=== PATIENT | female | born 1955 | race Caucasian/White ===

== ENCOUNTER 2017-03-24 07:23 | Emergency (ER) | payer MEDICARE, OTHER ==
[~2017-03-24 07:23] MED LIST: ACET500T3 PO; BONI150T PO; ESTR1 PO; FLAV100T PO; GABA300C5 PO; HYDR25TA5 PO; LEVO100T5 PO; LISI10TA3 PO; MELO-1 PO; OXYC1TAB63 PO; TIZA4CAP3 PO; [UNRECOGNIZED DRUG - OTHER] TOPICAL; calcium PO
[2017-03-24 07:26] VITALS: BP 121/64; PULSE 71; RESP 12; TEMP 98.4; O2SAT 97
[2017-03-24] MEDS ORDERED: ONDANSETRON HCL 4 MG/2 ML VIAL IV PUSH ONE (08:15)
[2017-03-24] MEDS ORDERED: HYDROmorphone HCL PF 1 MG/ML VIAL IV PUSH ONE (08:15)
[2017-03-24 08:28] LABS: AUTOMATED NEUTROPHIL # 3.5 TH/MM3 (1.8-7.7); BASOPHIL % 0.7 % (0.0-2.0); EOSINOPHIL % 0.5 % (0.0-4.0); HEMATOCRIT 43.3 % (35.0-46.0); HEMO FLAGS DIFF FINAL; LYMPH % 29.3 % (9.0-44.0); LYMPHOCYTE # 1.6 TH/MM3 (1.0-4.8); MEAN CELL VOLUME 91.6 FL (80.0-100.0); MEAN CORPUSCULAR HEMOGLOBIN 31.1 PG (27.0-34.0); MONO % 7.3 % (0.0-8.0); NEUT % 62.2 % (16.0-70.0); PLATELET COUNT 254 TH/MM3 (150-450); RED BLOOD COUNT 4.73 MIL/MM3 (4.00-5.30); RED CELL DISTRIBUTION WIDTH 13.6 % (11.6-17.2); WHITE BLOOD COUNT 5.5 TH/MM3 (4.0-11.0)
[2017-03-24 08:46] LABS: ANION GAP 5 MEQ/L (5-15); AST (GOT) 46 U/L (15-37); BICARBONATE 29.2 MEQ/L (21.0-32.0); BLOOD UREA NITROGEN 14 MG/DL (7-18); CHLORIDE 105 MEQ/L (98-107); GLOMERULAR FILTRATION RATE 62 ML/MIN (>89); POTASSIUM 3.7 MEQ/L (3.5-5.1); SODIUM (NA) 139 MEQ/L (136-145)
[2017-03-24 08:50] LABS: ALKALINE PHOSPHATASE 82 U/L (45-117); ALT (GPT) 38 U/L (10-53); TOTAL BILIRUBIN ADULT 0.8 MG/DL (0.2-1.0)
--- NOTE | 2017-03-24 08:53 | PD ---
HPI Chief Complaint: Dizziness Time Seen by Provider: 07:49 Travel History International Travel<30 days: No Contact w/Intl Traveler<30days: No Traveled to known affect area: No History of Present Illness HPI This is a 62-year-old female who has a history of an ACDF performed in [place] 5 weeks ago who presents to the emergency department with 3 days of severe vertigo. She initially said it was positional and when she stood straight it would not bother her. She feels like the room is spinning. Now is affecting her all of the time and she can't sleep despite using meclizine that' s been prescribed by her doctor. Her symptoms are constant and severe. She is also reporting severe neck pain that starts at the base of her neck and extends into her right shoulder which she says hasn't bothered her since the surgery. She took oxycodone for it last night but it did not improve. She says she been healing really well from her surgery and for 3 weeks she was off any pain medications but her pain has recurred with the onset of this vertigo. [facility] Social History Alcohol Use: Yes Tobacco Use: No Substance Use: No Allergies-Medications (Allergen,Severity, Reaction): Coded Allergies: No Known Allergies (Unverified , 07/24/16) Reported Meds & Prescriptions Reported Meds & Active Scripts Active Reported Flavoxate (Flavoxate HCl) 100 Mg Tab 100 Mg PO BID Tizanidine (Tizanidine HCl) 4 Mg Cap 4 Mg PO HS Oxycodone-Acetaminophen 5-325 mg Tab 1 Tab PO Q4H PRN Meloxicam 15 Mg Tab 15 Mg PO DAILY Lisinopril 10 Mg Tab 10 Mg PO DAILY Levothyroxine (Levothyroxine Sodium) 100 Mcg Tab 100 Mcg PO DAILY Hydrochlorothiazide 25 Mg Tab 12.5 Mg PO DAILY Gabapentin 300 Mg Cap 300 Mg PO TID [calcium] 600 Mg PO BID Estrace (Estradiol) 1 Mg Tab 0.5 Mg PO DAILY Acetaminophen 500 Mg Tab 500 Mg PO HS PRN [Alpha Direct Oint] 1 Applic TOPICAL DIRECTED Boniva (Ibandronate Sodium) 150 Mg Tab 150 Mg PO Q28D Review of Systems Except as stated in HPI: all other systems reviewed are Neg Physical Exam Narrative GENERAL:Well appearing, no acute distress SKIN: Focused skin assessment warm and dry. HEAD: Atraumatic. Normocephalic. EYES: Pupils equal and round. No injection or drainage. ENT: Moist mucous membranes NECK: Trachea midline. Cervical collar in place. CARDIOVASCULAR: Regular rate and rhythm. No murmur appreciated. RESPIRATORY: Clear to auscultation. Breath sounds equal bilaterally. GASTROINTESTINAL: Abdomen soft, non-tender, nondistended. MUSCULOSKELETAL: No obvious deformities. NEUROLOGICAL: Awake and alert. No obvious cranial nerve deficits. Bidirectional Horizontal nystagmus. No dysarthria or aphasia. No upper or lower extremity drift. Mild bilateral upper extremity ataxia. PSYCHIATRIC: Appropriate mood and affect; insight and judgment normal. Data Data Last Documented VS Vital Signs Date Time Temp Pulse Resp B/P (MAP) Pulse Ox O2 Delivery O2 Flow Rate FiO2 03/24/17 07:26 98.4 71 12 121/64 (83) 97 Orders Orders Complete Blood Count With Diff (03/24/17 08:02) Comprehensive Metabolic Panel (03/24/17 08:02) ^ Insert Iv (03/24/17 08:02) Hydromorphone Pf Inj (Dilaudid Pf Inj) (03/24/17 08:15) Ondansetron Inj (Zofran Inj) (03/24/17 08:15) Ct Cerv Spine W/O Contrast (03/24/17 ) Mri Brain W/O Contrast (03/24/17 ) Labs Laboratory Tests Test 03/24/17 07:15 03/24/17 08:05 White Blood Count 5.5 TH/MM3 Red Blood Count 4.73 MIL/MM3 Hemoglobin 14.7 GM/DL Hematocrit 43.3 % Mean Corpuscular Volume 91.6 FL Mean Corpuscular Hemoglobin 31.1 PG Mean Corpuscular Hemoglobin Concent 34.0 % Red Cell Distribution Width 13.6 % Platelet Count 254 TH/MM3 Mean Platelet Volume 7.4 FL Neutrophils (%) (Auto) 62.2 % Lymphocytes (%) (Auto) 29.3 % Monocytes (%) (Auto) 7.3 % Eosinophils (%) (Auto) 0.5 % Basophils (%) (Auto) 0.7 % Neutrophils # (Auto) 3.5 TH/MM3 Lymphocytes # (Auto) 1.6 TH/MM3 Monocytes # (Auto) 0.4 TH/MM3 Eosinophils # (Auto) 0.0 TH/MM3 Basophils # (Auto) 0.0 TH/MM3 CBC Comment DIFF FINAL Differential Comment Blood Urea Nitrogen 14 MG/DL Creatinine 0.91 MG/DL Random Glucose 102 MG/DL Total Protein 7.5 GM/DL Albumin 4.3 GM/DL Calcium Level 9.0 MG/DL Alkaline Phosphatase 82 U/L Aspartate Amino Transf (AST/SGOT) 46 U/L Alanine Aminotransferase (ALT/SGPT) 38 U/L Total Bilirubin 0.8 MG/DL Sodium Level 139 MEQ/L Potassium Level 3.7 MEQ/L Chloride Level 105 MEQ/L Carbon Dioxide Level 29.2 MEQ/L Anion Gap 5 MEQ/L Estimat Glomerular Filtration Rate 62 ML/MIN MDM Medical Decision Making Medical Screen Exam Complete: Yes Emergency Medical Condition: Yes Interpretation(s) CT cervical spine: Hardware is aligned MRI: No acute process Differential Diagnosis ACDF complication, abscess, stroke, BPPV, vestibular neuritis Narrative Course This is a 62-year-old female who presents to the emergency department with dizziness that has been worsening in the past several days in the setting of having a recent cervical spine surgery. I spoke to Dr. Lange was on-call for her neurosurgeon. He recommended CT imaging to evaluate the hardware in the C- spine. CT was reassuring. I also obtained an MRI given the patient's physical exam findings of some ataxia and her persistent vertigo. This was reassuring. Patient will be discharged with Valium which I suspect will help her tension in her cervical and thoracic muscles as well as her vertigo. She was advised to continue to take her meclizine but not to combine Valium and her oxycodone. Diagnosis Primary Impression: Peripheral vertigo Qualified Codes: H81.393 - Other peripheral vertigo, bilateral Additional Impression: Muscle spasm Patient Instructions: General Instructions Additional Instructions: If you develop severe worsening headache, persistent vomiting, numbness, weakness, difficulty walking or difficulty talking return to the emergency department immediately. DO NOT COMBINE YOUR OXYCODONE AND VALIUM. IT IS OK TO TAKE MECLIZINE WITH THE VALIUM Med/Other Pt SpecificInfo: Prescription(s) given Scripts Diazepam (Valium) 5 Mg Tab 5 MG PO TID Y for SPASM, #15 TAB 0 Refills Prov: Sera Cardenas MD 03/24/17 Disposition: 01 DISCHARGE HOME Condition: Stable Sera Cardenas MD Mar 24, 2017 08:53
--- NOTE | 2017-03-24 09:04 | RADRPT ---
EXAM DATE/TIME: 03/24/2017 08:43 [facility] COMPARISON: No previous studies available for comparison. INDICATIONS : Vertigo. Pain,status post cervical fusion. RADIATION DOSE: 32.22 CTDIvol (mGy) MEDICAL HISTORY : Hypertension. SURGICAL HISTORY : None. ENCOUNTER: Initial ACUITY: 3 days PAIN SCALE: 0/10 LOCATION: cranial TECHNIQUE: Volumetric scanning of the cervical spine was performed. Multiplanar reconstructions in the sagittal, coronal and oblique axial planes were performed. Using automated exposure control and adjustment o f the mA and/or kV according to patient size, radiation dose was kept as low as reasonably achievable to obtain optimal diagnostic quality images. DICOM format image data is available electronically f or review and comparison. FINDINGS: VERTEBRAE: Status post anterior cervical fusion from C3-C7. There is good alignment of the cervical spine. There is mild anterior spondylolisthesis of C7 over T1 by 2 mm. The hardware is grossly intact. No focal s oft tissue swelling. The bony structures are grossly intact. The hardware is grossly intact. C2-C3: The bony spinal canal is normal in size. No evidence of disc bulge or herniation. The neural forami na are bilaterally patent. There is facet arthritis on the left side. C3-C4: The bony spinal canal is normal in size. No evidence of disc bulge or herniation. The neural forami na are bilaterally patent. Mild facet arthritis, left greater than right. C4-C5: The bony spinal canal is normal in size. No evidence of disc bulge or herniation. The neural forami na are bilaterally patent. C5-C6: The bony spinal canal is normal in size. No evidence of disc bulge or herniation. The neural forami na are bilaterally patent. C6-C7: The bony spinal canal is normal in size. No evidence of disc bulge or herniation. The neural forami na are bilaterally patent. C7-T1: The bony spinal canal is normal in size. No evidence of disc bulge or herniation. The neural forami na are bilaterally patent. Bilateral facet arthritis, left greater than right. CONCLUSION: 1. Status post anterior cervical fusion from C3-C7. There is good alignment of the cervical spine and fusion. 2. There is mild anterior subluxation of C7 over T1 by 2 mm. 3. There is facet arthritis at multiple levels. 4. The hardware is grossly intact. Haroon Harrell MD on March 24, 2017 at 8:57 Board Certified Radiologist. This report was verified electronically.
--- NOTE | 2017-03-24 09:41 | RADRPT ---
EXAM DATE/TIME: 03/24/2017 09:13 [facility] COMPARISON: No previous studies available for comparison. INDICATIONS : Dizziness. Pain to back of head and neck. Pt states cervical fusion with hardware 5 weeks ago. MEDICAL HISTORY : Hypertension. SURGICAL HISTORY : Total knee replacement, left. Total knee replacement, right. Fusion, cervical. Fusion, lumbar, hyster ectomy, tonsillectomy. ENCOUNTER: Initial ACUITY: 1 day PAIN SCORE: 5/10 LOCATION: cranial TECHNIQUE: Multiplanar, multisequence MRI of the brain was performed without contrast. FINDINGS: CEREBRUM: The ventricles are normal for age. No evidence of midline shift, mass lesion, hemorrhage or acute in farction. No extraaxial fluid collections are seen. The pituitary gland and suprasellar cistern are normal in configuration. WHITE MATTER: No significant signal abnormalities are seen in the white matter. POSTERIOR FOSSA: The cerebellum and brainstem are intact. The 4th ventricle is midline. The cerebellopontine angle is unremarkable. The cerebellar tonsils are normal in position. DIFFUSION IMAGING: No focal areas of restricted diffusion are seen. No evidence of acute infarction. EXTRACRANIAL: The visualized portions of the orbits and paranasal sinuses are unremarkable. CONCLUSION: Normal examination for a patient of this age. Haroon Harrell MD on March 24, 2017 at 9:38 Board Certified Radiologist. This report was verified electronically.
[2017-03-24] MEDS ORDERED: DIAZ5 PO (10:00)
[2017-03-24 10:20] VITALS: BP 132/72
== END 2017-03-24 10:27 | disposition home or self-care (01) ==
LOC: NEPC 07:23
DX: H81.393 Other peripheral vertigo, bilateral (principal); M62.838 Other muscle spasm
CPT/HCPCS: 70551; 72125; 80053; 85025; 96374; 96375; 99285; J1170; J2405